=== PATIENT | female | born 1960 | race Caucasian/White ===

== ENCOUNTER → 2022-07-04 15:58 | Outpatient (CLI) | payer BC, SELFPAY ==
--- NOTE | 2022-07-04 | CA_ITS ---
FINAL REPORT CLINICAL HISTORY: Rt leg edema x 3 weeks FINDINGS: There is no evidence of deep venous thrombosis from the level of the groin to the calf. The veins are patent and compressible. IMPRESSION: No evidence of deep venous thrombosis right lower extremity. Reviewed, Interpreted and Dictated by Arlene Hernandez MD Transcribed by Sejal Vasques Authenticated and [facility]
== END ==
PROVIDERS: PCP Nurse Practitioner Family; Visit Provider Nurse Practitioner Family
DX: R09.89 Other specified symptoms and signs involving the circulatory and respiratory systems (principal)
CPT/HCPCS: 93971

== ENCOUNTER 2023-01-15 15:01 | Observation (INO) | payer BC, SELFPAY ==
--- NOTE | 2023-01-15 15:42 | PC.NURSE ---
came to floor from admissions by w/c
[2023-01-15 15:44] VITALS: BMI 29.2
[2023-01-15 15:45] VITALS: BP 151/96; PULSE 72; RESP 18; TEMP 36.7; O2SAT 97
--- NOTE | 2023-01-15 16:05 | HMH.PHAINT1 ---
Pharmacy Intervention Comments: Home medications reviewed and verified with PCP, Pharmacy, and patient -Diego Brumfield, PharmD kishan
[2023-01-15 16:11] VITALS: PULSE 90
--- NOTE | 2023-01-15 16:12 | ECG_ITS ---
APPROVED REPORT Exam: Resting ECG HR:76 bpm ECG Measurements Heart Rate 76 AXES AK 178 P 24 QRSd 102 QRS 34 QT 383 T 10 QTc 414 Conclusion SINUS RHYTHM VOLTAGE CRITERIA FOR LVH [MEETS CRITERIA IN ONE OF: R(aVL), S(V1), R(V5), R(V5/V6)+S(V1)] NONSPECIFIC ST & T-WAVE ABNORMALITY ABNORMAL ECG UNCONFIRMED REPORT Electronically signed by : Duc Faustin MD 01/17/2023 21:24:52
--- NOTE | 2023-01-15 16:12 | XR_ITS ---
PROCEDURE INFORMATION: Exam: XR Chest Exam date and time: 01/15/2023 4:20 PM Age: 62 years old Clinical indication: Sternal or substernal pain; Patient HX: Chest pain, shortness of breath, pain radiating down left arm. TECHNIQUE: Imaging protocol: Radiologic exam of the chest. Views: 2 views. COMPARISON: No relevant prior studies available. FINDINGS: Lungs: No evidence of pneumonia or interstitial edema. Pleural spaces: Unremarkable. No pleural effusion. No pneumothorax. Heart/Mediastinum: Unremarkable. No cardiomegaly. Bones/joints: Unremarkable. IMPRESSION: No evidence of pneumonia or interstitial edema.
[2023-01-15 16:23] LABS: Chloride 102 mmol/L (98-107); Potassium 4.2 mmoL/L (3.5-5.1); Sodium 139 mmol/L (136-145)
--- NOTE | 2023-01-15 16:24 | PC.NURSE ---
pt taken for chest xray via w/c
[2023-01-15 16:25] LABS: Basophils % 0.3 % (0.1-2.0); Eosinophils # 0.2 K/mm3 (0.0-0.4); Hematocrit 44.9 % (42.0-52.0); Lymphocytes # 1.2 K/mm3 (0.7-4.5); Lymphocytes % 20.5 % (10-50); Mean Corpuscular HGB Conc 33.4 g/dL (31.8-35.4); Mean Corpuscular Hemoglobin 30.1 pg (27.0-31.2); Mean Corpuscular Volume 90.1 fl (80-94); Mean Platelet Volume 9.2 fl (7.4-10.4); Monocytes # 0.4 K/mm3 (0.1-1.0); Neutrophils # 4.1 K/mm3 (1.8-7.8); Neutrophils % 70.2 % (37.0-80.0); Platelet Count 152 K/mm3 (142-424); Red Blood Count 4.98 M/mm3 (4.60-6.20); Red Cell Distribution Width 13.1 % (11.5-17.5); White Blood Count 5.8 K/mm3 (4.8-10.8)
[2023-01-15 16:26] LABS: Blood Urea Nitrogen 16 mg/dl (9-20); Creatinine Clearance Estimated 106 mL/min (50-200); Estimated Glomerular Filt Rate 86 ml/min (>60); GFR (African American) 103 ML/MIN (>60)
[2023-01-15 16:27] LABS: Anion Gap 11.2 mEq/L (5-15); Carbon Dioxide 30 mmol/L (22.0-30.0)
[2023-01-15 16:32] LABS: Glucose 115 mg/dl (74-100)
[2023-01-15 16:33] LABS: Calcium 9.2 mg/dl (8.4-10.2)
--- NOTE | 2023-01-15 16:35 | PC.NURSE ---
Pt returned back to unit from radiology
[2023-01-15 16:40] LABS: Troponin I < 0.01 ng/ml (0.00-0.034)
[2023-01-15 16:46] LABS: Coronavirus 19, PCR Not Detected (NotDetected); Influenza A, PCR Not Detected (NotDetected); Influenza B, PCR Not Detected (NotDetected)
--- NOTE | 2023-01-15 17:15 | EXP.HP ---
History of Present Illness *Admission Date: 01/15/23 *Reason for visit:: chest pain *History of present illness: Anderson Anthony is a 62 year old male with a past medical history of GERD, alcohol use disorder and former cigarette smoker who presents with a day of intermittent sharp left sided chest pain. He doesn't regularly see physicians and hasn't ever had a workup for chest pain. The pain is associated with shortness of breath but no diaphoresis. There are no apparent provocative or palliative factors. His only regular medication is prilosec. He denies fevers, chills, abdominal pain, diarrhea and dysuria. [facility] Disclaimer: The information contained in this section may have been updated after the patient was seen, as this information can be updated by other users. Social History Smoking Status: Former smoker alcohol intake: current current occupational status: employed Travel in the last 8 weeks: None household members: spouse housing: house Review of Systems Review of Systems Review of systems:: pertinent systems reviewed and negative unless documented below *Cardiovascular Cardiovascular: Reports chest pain Meds Home Medications and Allergies Home Medications Medication Instructions Recorded Confirmed Type magnesium 250 mg tablet 250 mg PO DAILY Supplement 01/15/23 01/15/23 History omeprazole 20 mg capsule,delayed 20 mg PO DAILY Acid Reflux 01/15/23 01/15/23 History release New Prescriptions to Start Prescriptions: Allergies Allergy/AdvReac Type Severity Reaction Status Date / Time No Known Allergies Allergy Verified 05/24/21 10:15 Exam Data for Last 24 hours Vital signs and Labs for Last 24 Hours: Temp Pulse Resp BP Pulse Ox O2 Del Method 98.1 F 72 18 151/96 H 97 Room Air 01/15/23 15:45 01/15/23 15:45 01/15/23 15:45 01/15/23 15:45 01/15/23 15:45 01/15/23 16:53 Laboratory Results - last 24 hr 01/15/23 15:55: WBC 5.8, RBC 4.98, Hgb 15.0, Hct 44.9, MCV 90.1, MCH 30.1, MCHC 33.4, RDW 13.1, Plt Count 152, MPV 9.2, Neut % (Auto) 70.2, Lymph % (Auto) 20.5, [place] % (Auto) 6.0, Eos % (Auto) 3.0, Baso % (Auto) 0.3, Neut # (Auto) 4.1, Lymph # (Auto) 1.2, [place] # (Auto) 0.4, Eos # (Auto) 0.2, Baso # (Auto) 0.0, Sodium 139, Potassium 4.2, Chloride 102, Carbon Dioxide 30, Anion Gap 11.2, BUN 16, Creatinine 0.90, Estimated Creat Clear 106, Estimated GFR 86, Est GFR ( Amer) 103, Glucose 115 H, Calcium 9.2, Troponin I < 0.01 01/15/23 16:00: SARS-CoV-2 (PCR) Not detected, Influenza A Untype (PCR) Not detected, Influenza Type B (PCR) Not detected I & O for Last 24 hours: Intake & Output 01/12/23 01/13/23 01/14/23 01/15/23 23:59 23:59 23:59 23:59 Weight 97.607 kg Constitutional Constitutional: no acute distress *Routine HEENT Exam Head: Present normocephalic Eye: Present EOMI and PERRL ENT: Present mucous membranes moist *Routine Neck Exam Neck: Present supple; Absent lymphadenopathy *Routine Respiratory Exam Respiratory: Present CTA bilaterally *Routine Cardiovascular Exam Cardiovascular: Present RRR *Routine Abdominal Exam Abdominal: Present soft and normoactive bowel sounds; Absent tenderness *Routine Rectal Exam Rectal:: deferred *Routine Genitalia Exam Genitalia:: deferred *Routine Extremities Exam Extremities: Absent cyanosis, clubbing or edema *Routine Skin Exam Skin: Present warm; Absent rash *Routine Neurological Exam Neurological: Present alert and oriented X3 Assessment and Plan *Assessment and plan (1) Chest pain: Status: Acute Qualifiers: Chest pain type: unspecified Qualified Code(s): R07.9 - Chest pain, unspecified Category: Medical Code(s): R07.9 - Chest pain, unspecified (2) HTN (hypertension): Status: Acute Qualifiers: Hypertension type: unspecified Qualified Code(s): I10 - Essential (primary) hypertension Cat
--- NOTE | 2023-01-15 17:30 | EXP.CARD.CON ---
History of Present Illness History of Present Illness Consult date: 01/15/23 Requesting physician: Surinder Mccallum Consult reason: chest pain Chief complaint: chest pain, palpitations, HTN Additional Medical History:: 1. New onset hypertension 2. Tobacco use starting at age 7 smoking up to 1.5 packs/day and discontinued about 8 years ago (2014) 3. History of palpitations History of present illness: 62-year-old white male admitted from primary care office for new onset hypertension (reportedly 160s over 110 mmHg per patient and daughter) along with substernal chest pain with radiation into the left side of the neck and arm. 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 Symptoms were worse with activity. He quit smoking several years ago and has no history of diabetes or hyperlipidemia. Denies any family history of heart disease. Chest x-ray is negative for acute disease. EKG is sinus with LVH. No acute ST segment changes. [facility] Disclaimer: The information contained in this section may have been updated after the patient was seen, as this information can be updated by other users. Social History Smoking Status: Former smoker alcohol intake: current current occupational status: employed Travel in the last 8 weeks: None household members: spouse housing: house Review of Systems Review of Systems Review of systems:: pertinent systems reviewed and negative unless documented below *Cardiovascular Cardiovascular: Reports chest pain and Reports dyspnea on exertion *Respiratory Respiratory: Denies cough and Reports dyspnea on exertion Exam Data for Last 24 hours Vital signs and Labs for Last 24 Hours: Temp Pulse Resp BP Pulse Ox O2 Del Method 98.1 F 72 18 151/96 H 97 Room Air 01/15/23 15:45 01/15/23 15:45 01/15/23 15:45 01/15/23 15:45 01/15/23 15:45 01/15/23 16:53 Laboratory Results - last 24 hr 01/15/23 15:55: WBC 5.8, RBC 4.98, Hgb 15.0, Hct 44.9, MCV 90.1, MCH 30.1, MCHC 33.4, RDW 13.1, Plt Count 152, MPV 9.2, Neut % (Auto) 70.2, Lymph % (Auto) 20.5, [place] % (Auto) 6.0, Eos % (Auto) 3.0, Baso % (Auto) 0.3, Neut # (Auto) 4.1, Lymph # (Auto) 1.2, [place] # (Auto) 0.4, Eos # (Auto) 0.2, Baso # (Auto) 0.0, Sodium 139, Potassium 4.2, Chloride 102, Carbon Dioxide 30, Anion Gap 11.2, BUN 16, Creatinine 0.90, Estimated Creat Clear 106, Estimated GFR 86, Est GFR ( Amer) 103, Glucose 115 H, Calcium 9.2, Troponin I < 0.01 01/15/23 16:00: SARS-CoV-2 (PCR) Not detected, Influenza A Untype (PCR) Not detected, Influenza Type B (PCR) Not detected I & O for Last 24 hours: Intake & Output 01/13/23 01/14/23 01/15/23 01/16/23 11:59 11:59 11:59 11:59 Weight 215 lb 3 oz Constitutional Constitutional: no acute distress *Routine Respiratory Exam Respiratory: Present CTA bilaterally *Routine Cardiovascular Exam Cardiovascular: Present RRR; Absent murmur, gallop or rubs *Routine Extremities Exam Extremities: Absent cyanosis, clubbing or edema *Routine Neurological Exam Neurological: Present alert, oriented X3 and CN II-XII intact Meds Home Medications and Allergies Home Medications Medication Instructions Recorded Confirmed Type magnesium 250 mg tablet 250 mg PO DAILY Supplement 01/15/23 01/15/23 History omeprazole 20 mg capsule,delayed 20 mg PO DAILY Acid Reflux 01/15/23 01/15/23 History release New Prescriptions to Start Prescriptions: Allergies Allergy/AdvReac Type Severity Reaction Status Date / Time No Known Allergies Allergy Verified 05/24/21 10:15 Assessment and Plan *Assessment and plan (1) Chest pain: Status: Acute Qualifiers: Chest pain type: unspecified Qualified Code(s): R07.9 - Chest pain, unspecified Category: Medical Code(s): R07.9 - Chest pain, unspecified (2) HTN (hypertension): Status: Acute Qualifiers: Hy
--- NOTE | 2023-01-15 19:03 | PC.NURSE ---
Bedside shift report form ZEUS Patel
[2023-01-15 20:00] VITALS: BP 132/84; PULSE 75; PULSE 90; RESP 18; TEMP 36.6; O2SAT 98
[2023-01-15 22:40] LABS: Troponin I < 0.01 ng/ml (0.00-0.034)
[2023-01-16] VITALS (17 sets, daily range): BP systolic 112–153; BP diastolic 51–87; PULSE 54–70; RESP 12–19; TEMP 36.6–37; O2SAT 93–99; BMI 29.5
--- NOTE | 2023-01-16 06:45 | IR_ITS ---
APPROVED REPORT Patient Location: Inpatient [facility] Layer: MEKA Vigil RT (R) PROCEDURES Left heart catheterization Left ventriculogram Selective coronary angiogram INDICATION Unstable angina Informed consent was obtained prior to the procedure. COMPLICATIONS None Estimated Blood Loss: Less than 10 mls TECHNIQUE One percent lidocaine used to anesthetize the right anterior aspect of the wrist. The right radial artery was accessed via the Seldinger technique. A 6 Brazilian sheath was placed in the right radial artery. 150 mg magnesium sulfate, 800 mcg of nitroglycerin, 1mg Lidocaine and 5000 U Heparin were given through the arterial sheath. The papa catheter was also used to perform left heart catheterization, left ventriculogram and selective coronary angiogram. At the end of the procedure the sheath was removed good hemostasis was achieved using Traclet band, patient was transferred to the postop holding area in stable condition. ANGIOGRAPHIC RESULTS The left main artery Normal The left anterior descending artery Has proximal 20 to 30% stenoses with mid vessel 10% luminal regularities The circumflex artery Nondominant mild 10% luminal regularities The right coronary artery Dominant with proximal and mid vessel 10 to 20% stenoses The COLLAZO ventriculogram reveals Normal 60% The left ventricular end-diastolic pressure 20 mmHg IMPRESSION Mild nonflow limiting coronary artery disease Normal ejection fraction Elevated LVEDP consistent with hypertensive heart disease PLAN 1. Risk factor modification 2. Medical management for hypertensive heart disease and elevated LVEDP Electronically signed by : Brandon Almaguer MD 01/16/2023 09:26:29
--- NOTE | 2023-01-16 06:45 | PC.NURSE ---
Patient rested well throughout shift without needs or concerns expressed. He is independent to all ADL's. He remained NPO after midnight for heart cath this AM. greenhouse technician at bedside now completing study. No needs at this time. VSS. NAD
[2023-01-16 07:24] LABS: Magnesium 2.2 mg/dl (1.6-2.3)
--- NOTE | 2023-01-16 07:31 | PC.NURSE ---
Consent signed. Patient ready for cath.
[2023-01-16 07:38] LABS: Troponin I < 0.01 ng/ml (0.00-0.034)
[2023-01-16 08:22] LABS: Chol/HDL Ratio 3.8 (1-3.5); Cholesterol 180 mg/dl (140-200); HDL Cholesterol 47 mg/dl (40-60); Triglycerides 164 mg/dl (30-150); VLDL Cholesterol 33 mg/dL (0-40)
[2023-01-16 08:30] LABS: Hemoglobin A1C 5.6 % (4.0-6.0)
--- NOTE | 2023-01-16 09:05 | EXP.CARD.PN ---
Subjective Subjective Date: 01/16/23 Time: 09:05 Principal diagnosis: chest pain Interval history: 62-year-old white male in bed in no acute distress. No complaints overnight. Agrees to proceed with heart cath today. Blood pressure overnight was much improved on medication. Exam Data for Last 24 hours Vital signs and Labs for Last 24 Hours: Temp Pulse Resp BP Pulse Ox O2 Del Method 98.1 F 70 18 153/87 H 98 Room Air 01/16/23 07:29 01/16/23 07:29 01/16/23 07:29 01/16/23 07:29 01/16/23 07:32 01/16/23 07:32 Laboratory Results - last 24 hr 01/15/23 15:55: WBC 5.8, RBC 4.98, Hgb 15.0, Hct 44.9, MCV 90.1, MCH 30.1, MCHC 33.4, RDW 13.1, Plt Count 152, MPV 9.2, Neut % (Auto) 70.2, Lymph % (Auto) 20.5, [place] % (Auto) 6.0, Eos % (Auto) 3.0, Baso % (Auto) 0.3, Neut # (Auto) 4.1, Lymph # (Auto) 1.2, [place] # (Auto) 0.4, Eos # (Auto) 0.2, Baso # (Auto) 0.0, Sodium 139, Potassium 4.2, Chloride 102, Carbon Dioxide 30, Anion Gap 11.2, BUN 16, Creatinine 0.90, Estimated Creat Clear 106, Estimated GFR 86, Est GFR ( Amer) 103, Glucose 115 H, Calcium 9.2, Troponin I < 0.01 01/15/23 16:00: SARS-CoV-2 (PCR) Not detected, Influenza A Untype (PCR) Not detected, Influenza Type B (PCR) Not detected 01/15/23 22:00: Troponin I < 0.01 01/16/23 06:39: Hemoglobin A1c 5.6, Magnesium 2.2, Troponin I < 0.01, Triglycerides 164 H, Cholesterol 180, LDL Cholesterol Direct 99.00 L, VLDL Cholesterol 33, HDL Cholesterol 47, Cholesterol/HDL Ratio 3.8 H I & O for Last 24 hours: Intake & Output 01/13/23 01/14/23 01/15/23 01/16/23 11:59 11:59 11:59 11:59 Intake Total 360 / 360 Output Total 1650 / 1650 Balance -1290 / -1290 Weight 217 lb 11.2 oz Constitutional Constitutional: no acute distress *Routine Respiratory Exam Respiratory: Present CTA bilaterally *Routine Cardiovascular Exam Cardiovascular: Present RRR Progress Note: A&P Assessment and plan (1) Chest pain: Status: Acute (2) HTN (hypertension): Status: Acute (3) Ex-smoker for more than 1 year: Status: Acute (4) Abnormal EKG: Status: Acute Assessment and Plan Assessment and Plan for All Diagnoses:: 1. Chest pain with radiation to neck and shoulder in a patient with long-term tobacco use which was discontinued in 2014 Check echo Trops normal, LDL 99 Start beta-ina, statin, norvasc and aspirin Recommend left heart catheterization due to cardiac risk factors (male, over the age of 40, ex-smoker, recurrent chest pain and abnormal EKG) 2. Hypertension, new onset per patient Check echo and start beta-ina Consider renal angiogram at the time of left heart catheterization due to new onset hypertension 3. Ex-smoker ANGIOGRAPHIC RESULTS The left main artery Normal The left anterior descending artery Has proximal 20 to 30% stenoses with mid vessel 10% luminal regularities The circumflex artery Nondominant mild 10% luminal regularities The right coronary artery Dominant with proximal and mid vessel 10 to 20% stenoses The COLLAZO ventriculogram reveals Normal 60% The left ventricular end-diastolic pressure 20 mmHg IMPRESSION Mild nonflow limiting coronary artery disease Normal ejection fraction Elevated LVEDP consistent with hypertensive heart disease PLAN 1. Risk factor modification 2. Medical management for hypertensive heart disease and elevated LVEDP Pt could be discharged home later today. Home med recommendations: Aspirin 81 mg daily Atorvastatin 40 mg daily Amlodipine 5 mg daily Metoprolol succinate 25 mg nightly Pantoprazole 40 mg daily Follow-up in our office in 1 week.
--- NOTE | 2023-01-16 13:51 | EXP.DC.SUM ---
General Admission date:: 01/15/23 Discharge date: 01/16/23 HPI HPI HPI: Anderson Anthony is a 62 year old male with a past medical history of GERD, alcohol use disorder and former cigarette smoker who presents with a day of intermittent sharp left sided chest pain. He doesn't regularly see physicians and hasn't ever had a workup for chest pain. The pain is associated with shortness of breath but no diaphoresis. There are no apparent provocative or palliative factors. His only regular medication is prilosec. He denies fevers, chills, abdominal pain, diarrhea and dysuria. Hospital Course Hospital Course Hospital Course: Troponin levels were trended and were within normal limits. Cardiology performed a left heart catheterization with the following results: ANGIOGRAPHIC RESULTS The left main artery Normal The left anterior descending artery Has proximal 20 to 30% stenoses with mid vessel 10% luminal regularities The circumflex artery Nondominant mild 10% luminal regularities The right coronary artery Dominant with proximal and mid vessel 10 to 20% stenoses The COLLAZO ventriculogram reveals Normal 60% The left ventricular end-diastolic pressure 20 mmHg IMPRESSION Mild nonflow limiting coronary artery disease Normal ejection fraction Elevated LVEDP consistent with hypertensive heart disease -- The patient was discharged with new diagnosis of CAD and HTN. He was discharged with new medications amlodipine, metoprolol, aspirin, and Lipitor. He will need to f/u with Cardiology and PCP in 1 week. Exam Data for Last 24 hours Vital signs and Labs for Last 24 Hours: Temp Pulse Resp BP Pulse Ox O2 Del Method O2 Flow Rate 98.3 F 68 15 130/72 95 Room Air 95 01/16/23 11:15 01/16/23 12:15 01/16/23 12:15 01/16/23 12:15 01/16/23 12:00 01/16/23 13:00 01/16/23 13:00 Laboratory Results - last 24 hr 01/15/23 15:55: WBC 5.8, RBC 4.98, Hgb 15.0, Hct 44.9, MCV 90.1, MCH 30.1, MCHC 33.4, RDW 13.1, Plt Count 152, MPV 9.2, Neut % (Auto) 70.2, Lymph % (Auto) 20.5, [place] % (Auto) 6.0, Eos % (Auto) 3.0, Baso % (Auto) 0.3, Neut # (Auto) 4.1, Lymph # (Auto) 1.2, [place] # (Auto) 0.4, Eos # (Auto) 0.2, Baso # (Auto) 0.0, Sodium 139, Potassium 4.2, Chloride 102, Carbon Dioxide 30, Anion Gap 11.2, BUN 16, Creatinine 0.90, Estimated Creat Clear 106, Estimated GFR 86, Est GFR ( Amer) 103, Glucose 115 H, Calcium 9.2, Troponin I < 0.01 01/15/23 16:00: SARS-CoV-2 (PCR) Not detected, Influenza A Untype (PCR) Not detected, Influenza Type B (PCR) Not detected 01/15/23 22:00: Troponin I < 0.01 01/16/23 06:39: Hemoglobin A1c 5.6, Magnesium 2.2, Troponin I < 0.01, Triglycerides 164 H, Cholesterol 180, LDL Cholesterol Direct 99.00 L, VLDL Cholesterol 33, HDL Cholesterol 47, Cholesterol/HDL Ratio 3.8 H I & O for Last 24 hours: Intake & Output 01/13/23 01/14/23 01/15/23 01/16/23 23:59 23:59 23:59 23:59 Intake Total 360 / 360 360 / 360 Output Total 1650 / 1650 Balance 360 / -40 -1290 / -1290 Weight 97.607 kg 98.747 kg Constitutional Constitutional: no acute distress *Routine HEENT Exam Head: Present normocephalic Eye: Present EOMI and PERRL ENT: Present mucous membranes moist *Routine Neck Exam Neck: Present supple; Absent lymphadenopathy *Routine Respiratory Exam Respiratory: Present CTA bilaterally *Routine Cardiovascular Exam Cardiovascular: Present RRR *Routine Abdominal Exam Abdominal: Present soft and normoactive bowel sounds; Absent tenderness *Routine Extremities Exam Extremities: Absent cyanosis, clubbing or edema *Routine Skin Exam Skin: Present warm; Absent rash *Routine Neurological Exam Neurological: Present alert and oriented X3 Results Data Completed and Pending Labs on day of discharge: Labs from last 24 hours 01/16/23 01/15/23 01/15/23 06:39 22:00 16:00 WBC RBC Hgb Hct MCV MCH MCHC RDW Plt Count MPV Neut % (Auto) Lymph % (Auto) [place] % (Auto) Eos % (
--- NOTE | 2023-01-16 13:59 | HMH.PHAINT1 ---
Pharmacy Intervention Comments: Discharge medications reviewed with patient, patient's , and other family members. -Aspirin (told to watch for bleeding and bruising) -Amlodipine (told to watch for peripheral edema) -Atorvastatin ( told to watch for muscle pain) -Metoprolol (told to watch for fatigue and dizziness while standing after sitting) Diego Brumfield, PharmD student
--- NOTE | 2023-01-17 14:00 | CARE MANAGER ---
Called and spoke with patient regarding recent discharge. Patient stated that he has started all new medication and he was aware of scheduled f/u appts. No concerns or complaints at time of call.
== END 2023-01-16 14:59 | disposition home or self-care (01) ==
PROVIDERS: Admitting Provider Internal Medicine; PCP Nurse Practitioner Family; Visit Provider Internal Medicine
DX: I25.110 Atherosclerotic heart disease of native coronary artery with unstable angina pectoris (principal); Z87.891 Personal history of nicotine dependence; K21.9 Gastro-esophageal reflux disease without esophagitis; F10.10 Alcohol abuse, uncomplicated; I10 Essential (primary) hypertension; Z79.899 Other long term (current) drug therapy; R94.31 Abnormal electrocardiogram [ECG] [EKG]
CPT/HCPCS: 36415; 71046; 80048; 80061; 83036; 83735; 84484; 85025; 87636; 93005; 93306; 93458; 99152; C1725; C1769; G0378; J1644; Q9967

== ENCOUNTER 2023-02-22 14:55 | Emergency (ER) | payer BC, SELFPAY ==
[2023-02-22] VITALS (7 sets, daily range): BP systolic 143–167; BP diastolic 52–95; PULSE 73–81; RESP 16–18; TEMP 36.6–36.8; O2SAT 95–98; BMI 29.4
--- NOTE | 2023-02-22 16:39 | CT_ITS ---
PROCEDURE INFORMATION: Exam: CT Pelvis Without Contrast; Skeletal Exam date and time: 02/22/2023 5:19 PM Age: 62 years old Clinical indication: Injury or trauma; Fall; Blunt trauma (contusions or hematomas); Bilateral; Pelvic region; Additional info: Fall, L posterior pelvic pain TECHNIQUE: Imaging protocol: Computed tomography of the pelvis without contrast. Exam focused on the skeleton. Radiation optimization: All CT scans at this facility use at least one of these dose optimization techniques: automated exposure control; mA and/or kV adjustment per patient size (includes targeted exams where dose is matched to clinical indication); or iterative reconstruction. REPORTING DATA: Count of CT and Cardiac NM exams in prior 12 months: This patient has received 0 known CTs and 0 known cardiac nuclear medicine studies in the 12 months prior to the current study. COMPARISON: CA VENOUS DOPPLER LE RT 07/04/2022 4:07 PM FINDINGS: Vasculature: Scattered atherosclerotic disease of the arterial vasculature. Bones/joints: There is diffuse osseous demineralization. Soft tissues: There is moderate soft tissue edema over the left buttock without underlying osseous injury. IMPRESSION: There is moderate soft tissue edema over the left buttock without underlying osseous injury.
--- NOTE | 2023-02-22 16:39 | XR_ITS ---
PROCEDURE INFORMATION: Exam: XR Left Hand Exam date and time: 02/22/2023 4:54 PM Age: 62 years old Clinical indication: Injury or trauma; Fall; Blunt trauma (contusions or hematomas); Hand; Left; Additional info: Fall, thumb pain TECHNIQUE: Imaging protocol: Radiologic exam of the left hand. Views: 3 or more views. COMPARISON: No relevant prior studies available. FINDINGS: Bones/joints: There is negative ulnar variance. There is minimal degenerative disease of the carpus and 1st basal joint. No acute fracture or dislocation is identified. Soft tissues: Normal. IMPRESSION: Degenerative disease without acute injury identified.
--- NOTE | 2023-02-22 16:39 | CT_ITS ---
PROCEDURE INFORMATION: Exam: CTA Abdomen and Pelvis With Contrast Exam date and time: 02/22/2023 5:23 PM Age: 62 years old Clinical indication: Injury or trauma; Fall; Blunt trauma; Lower abdominal or back area; Left; Additional info: Fall, L gluteal significant swelling TECHNIQUE: Imaging protocol: Computed tomographic angiography of the abdomen and pelvis with contrast. Exam focused on the arteries. 3D rendering (Not supervised by radiologist): MIP and/or 3D reconstructed images were created by the technologist. Radiation optimization: All CT scans at this facility use at least one of these dose optimization techniques: automated exposure control; mA and/or kV adjustment per patient size (includes targeted exams where dose is matched to clinical indication); or iterative reconstruction. Contrast material: ISOVUE; Contrast volume: 100 ml; Contrast route: INTRAVENOUS (IV); REPORTING DATA: Count of CT and Cardiac NM exams in prior 12 months: This patient has received 0 known CTs and 0 known cardiac nuclear medicine studies in the 12 months prior to the current study. COMPARISON: CT BONY PELVIS 02/22/2023 5:19 PM FINDINGS: Aorta: There is atherosclerotic disease of the visualized aorta and its major branch vessels. Celiac trunk and mesenteric arteries: No occlusion or significant stenosis. Renal arteries: No occlusion or significant stenosis. Right iliac arteries: No occlusion or significant stenosis. Left iliac arteries: No occlusion or significant stenosis. Liver: No mass. Gallbladder and bile ducts: Unremarkable. No calcified stones. No ductal dilation. Pancreas: There is fatty replacement of the pancreas. Spleen: Unremarkable. No splenomegaly. Adrenal glands: Unremarkable. No mass. Kidneys and ureters: Unremarkable. No solid mass. No hydronephrosis. Stomach and bowel: Unremarkable. No obstruction. No mucosal thickening. Appendix: No evidence of appendicitis. Intraperitoneal space: Unremarkable. No free air. No significant fluid collection. Lymph nodes: Unremarkable. No enlarged lymph nodes. Urinary bladder: Unremarkable. No mass. Reproductive: Unremarkable as visualized. Bones/joints: There is diffuse degenerative disease of the visualized osseous structures. Soft tissues: Unremarkable. Other findings: Please see the dedicated interpretation of the thorax for findings in that region. IMPRESSION: No acute traumatic injury is identified.
--- NOTE | 2023-02-22 16:39 | CT_ITS ---
PROCEDURE INFORMATION: Exam: CTA Chest With Contrast Exam date and time: 02/22/2023 5:23 PM Age: 62 years old Clinical indication: Injury or trauma; Fall; Blunt trauma (contusions or hematomas); Additional info: Trauma, posterior R thoracic cage pain TECHNIQUE: Imaging protocol: Computed tomographic angiography of the chest with contrast. Exam focused on the arteries. 3D rendering (Not supervised by radiologist): MIP and/or 3D reconstructed images were created by the technologist. Radiation optimization: All CT scans at this facility use at least one of these dose optimization techniques: automated exposure control; mA and/or kV adjustment per patient size (includes targeted exams where dose is matched to clinical indication); or iterative reconstruction. Contrast material: ISOVUE; Contrast volume: 100 ml; Contrast route: INTRAVENOUS (IV); REPORTING DATA: Count of CT and Cardiac NM exams in prior 12 months: This patient has received 0 known CTs and 0 known cardiac nuclear medicine studies in the 12 months prior to the current study. COMPARISON: CR XR CHEST 2V 01/15/2023 4:20 PM FINDINGS: Pulmonary arteries: Normal. No pulmonary emboli. Aorta: Unremarkable. No aortic aneurysm. No aortic dissection. Lungs: There is a calcified granuloma in the left lower lobe. Pleural spaces: Unremarkable. No pneumothorax. No pleural effusion. Heart: Unremarkable. No cardiomegaly. No pericardial effusion. Lymph nodes: There are calcified mediastinal lymph nodes likely reflecting prior granulomatous disease. Intraperitoneal space: Please see the dedicated interpretation of abdomen and pelvis for findings in that region. Bones/joints: Unremarkable. No acute fracture. Soft tissues: Unremarkable. IMPRESSION: No acute traumatic injury is identified.
--- NOTE | 2023-02-22 16:41 | HMH.EDGENADL ---
Discharge Plan Disposition Patient Disposition: Home, Self-Care Condition: Fair Chief Complaint: Fall Prescriptions Prescriptions: No Action amlodipine 5 mg tablet 5 mg PO DAILY Qty: 90 3RF atorvastatin 40 mg tablet 40 mg PO HS Qty: 90 3RF metoprolol succinate 25 mg capsule,sprinkle,ER 24hr 25 mg PO DAILY Qty: 90 3RF Rx Instructions: Take one tablet every night. omeprazole 20 mg capsule,delayed release(DR/EC) 20 mg PO DAILY Qty: 90 3RF magnesium 250 mg Tablet 250 mg PO DAILY aspirin 81 mg Tablet,Chewable 81 mg PO DAILY Qty: 30 0RF Referrals Follow up/Referrals: Jaxon Zayas APRN [Primary Care Provider] - See instructions Activity Restrictions/Add. Instructions Additional Instructions/Restrictions: At this time is felt you are safe to be discharged home. If new or worsening symptoms please not hesitate to return the emergency department. For pain please take Tylenol and ibuprofen every 6 hours as needed. Clinical Impressions Clinical Impression: Blunt trauma, Fall Discharge ED Provider: Jimmie Whitmore General Adult HPI General Chief complaint: Fall Stated complaint: AO8/24@home, pain in tailbone/back Time Seen by Provider: 02/22/23 16:22 Mode of Arrival: Ambulatory Source of Information: Patient Limitations: No Limitations Description of Symptoms (Recalled from ER Triage Doc. by RN): Pt reports falling down 6 steps and landing on his buttocks and injuring his right ribs/flank area at aprox 11am today. Pt has brusing to left buttock and it is somewhat firm to the touch. History of Present Illness HPI narrative: Patient is a 62-year-old male with no pertinent past medical history not on anticoagulants who presents emergency department for evaluation of traumatic injury sustained in a fall. Patient states that he fell while going down 6 stairs when it was wet outside, denies hitting his head, he landed on his left hip and mid back. Patient is complaining of left hip pain, left thumb pain, right inferior posterior rib pain. Denies headache, midline neck pain, other acute complaints at this time. Related Data Home Medications Medication Instructions Recorded Confirmed magnesium 250 mg tablet 250 mg PO DAILY Supplement 01/15/23 01/23/23 Previous Rx's Medication Instructions Recorded aspirin 81 mg chewable tablet 81 mg PO DAILY #30 tabs 01/16/23 amlodipine 5 mg tablet 5 mg PO DAILY #90 tabs 01/23/23 atorvastatin 40 mg tablet 40 mg PO HS #90 tabs 01/23/23 metoprolol succinate 25 mg capsule 25 mg PO DAILY #90 ea 01/23/23 sprinkle, ext. release 24 hr omeprazole 20 mg capsule,delayed 20 mg PO DAILY Acid Reflux #90 caps 01/23/23 release Allergies Allergy/AdvReac Type Severity Reaction Status Date / Time No Known Allergies Allergy Verified 01/23/23 12:08 [facility] Disclaimer: The information contained in this section may have been updated after the patient was seen, as this information can be updated by other users. Medical History (Updated 02/22/23 @ 18:10 by Jimmie Whitmore MD) Coronary artery disease HLD (hyperlipidemia) Social History Smoking Status: Never smoker alcohol intake: current current occupational status: employed Travel in the last 8 weeks: None household members: spouse housing: house ROS Obtained: Yes Systems reviewed as appropriate & no additional complaints except as documented Physical Exam General General appearance: alert and in no apparent distress Head Head exam: atraumatic and normocephalic Eye Eye exam: Present PERRL and EOMI ENT ENT exam: Present mucous membranes moist Neck Neck exam: Present normal inspection and full ROM; Absent tenderness Chest Chest inspection: Present normal inspection, symmetric chest wall rise and other (Posterior right thoracic cage tenderness) Respiratory Respiratory exam: Present normal lung sounds bilaterally; Abs
[2023-02-22 16:55] LABS: Basophils % 0.4 % (0.1-2.0); Eosinophils # 0.2 K/mm3 (0.0-0.4); Eosinophils % 1.8 % (0.1-12.0); Hematocrit 44.7 % (42.0-52.0); Hemoglobin 14.9 g/dL (14.1-18.0); Lymphocytes # 1.5 K/mm3 (0.7-4.5); Lymphocytes % 14.9 % (10-50); Mean Corpuscular HGB Conc 33.4 g/dL (31.8-35.4); Mean Corpuscular Hemoglobin 30.7 pg (27.0-31.2); Mean Corpuscular Volume 91.8 fl (80-94); Mean Platelet Volume 9.3 fl (7.4-10.4); Monocytes # 0.7 K/mm3 (0.1-1.0); Neutrophils # 7.4 K/mm3 (1.8-7.8); Neutrophils % 75.9 % (37.0-80.0); Platelet Count 194 K/mm3 (142-424); Red Blood Count 4.87 M/mm3 (4.60-6.20); Red Cell Distribution Width 12.9 % (11.5-17.5); White Blood Count 9.8 K/mm3 (4.8-10.8)
[2023-02-22 16:57] LABS: Chloride 105 mmol/L (98-107); Sodium 140 mmol/L (136-145)
[2023-02-22 17:00] LABS: Alanine Aminotransferase 54 U/L (12-78); Albumin Level 4.1 g/dl (3.5-5.0); Albumin/Globulin Ratio 1.4 (1.1-1.8); Alkaline Phosphatase 80 U/L (38-126); Aspartate Amino Transferase 46 U/L (17-59); Bilirubin,Total 0.5 mg/dl (0.2-1.3); Blood Urea Nitrogen 14 mg/dl (9-20); Creatinine Clearance Estimated 107 mL/min (50-200); Estimated Glomerular Filt Rate 98 ml/min (>60); GFR (African American) 119 ML/MIN (>60); Globulin 2.9 g/dL (1.3-3.2)
[2023-02-22 17:01] LABS: Calcium 9.2 mg/dl (8.4-10.2); Carbon Dioxide 29 mmol/L (22.0-30.0); Glucose 123 mg/dl (74-100)
== END 2023-02-22 18:20 | disposition home or self-care (01) ==
PROVIDERS: Emergency Provider Emergency Medicine; PCP Nurse Practitioner Family
DX: M25.552 Pain in left hip (principal); R07.81 Pleurodynia; M79.645 Pain in left finger(s); I11.9 Hypertensive heart disease without heart failure; I25.10 Atherosclerotic heart disease of native coronary artery without angina pectoris; E78.5 Hyperlipidemia, unspecified; W10.8XXA Fall (on) (from) other stairs and steps, initial encounter
CPT/HCPCS: 36415; 71275; 72192; 73130; 74174; 80053; 85025; 86850; 96374; 99285; Q9967

== ENCOUNTER 2024-10-29 09:29 | Outpatient (CLI) | payer OTHER, SELFPAY ==
[2024-10-29 09:59] LABS: Basophils % 0.5 % (0.1-2.0); Eosinophils # 0.2 Kmm3 (0.0-0.4); Eosinophils % 3.6 % (0.1-12.0); Hemoglobin 15.3 g/dL (14.1-18.0); Lymphocytes # 1.5 K/mm3 (0.7-4.5); Mean Corpuscular HGB Conc 33.3 g/dL (31.8-35.4); Mean Corpuscular Hemoglobin 29.9 pg (27.0-31.2); Mean Corpuscular Volume 89.8 fl (80-94); Monocytes # 0.4 K/mm3 (0.1-1.0); Monocytes % 6.7 % (1.7-9.3); Neutrophils # 3.6 K/mm3 (1.8-7.8); Neutrophils % 62.9 % (37.0-80.0); Nucleated Red Blood Cells # 0 10^3/uL; Nucleated Red Blood Cells % 0 %; Platelet Count 169 K/mm3 (142-424); Red Blood Count 5.12 M/mm3 (4.60-6.20); Red Cell Distribution Width 12.1 % (11.5-17.5); Red Cell Distribution Width-SD 39.7 fL; White Blood Count 5.8 K/mm3 (4.8-10.8)
[2024-10-29 10:29] LABS: Chloride 105 mmol/L (98-107); Sodium 141 mmol/L (136-145)
[2024-10-29 10:31] LABS: Bilirubin,Unconjugated 0.4 mg/dL (0.0-1.1); Blood Urea Nitrogen 12 mg/dl (9-20); Carbon Dioxide 29 mmol/L (22.0-30.0); Estimated Glomerular Filt Rate 85 ml/min (>60); GFR (African American) 103 ML/MIN (>60)
[2024-10-29 10:32] LABS: Alanine Aminotransferase 84 U/L (12-78); Alkaline Phosphatase 84 U/L (38-126); Aspartate Amino Transferase 63 U/L (17-59); Bilirubin,Direct 0.1 mg/dl (0.0-0.4); Bilirubin,Indirect 0.4 mg/dL (0.0-0.9); Bilirubin,Total 0.5 mg/dl (0.2-1.3); Cholesterol 119 mg/dl (140-200); Glucose 131 mg/dl (74-100); HDL Cholesterol 60 mg/dl (40-60); Total Protein,Serum 7.4 g/dl (6.3-8.2); Triglycerides 169 mg/dl (30-150); VLDL Cholesterol 34 mg/dL (0-40)
[2024-10-29 10:49] LABS: Free T4 (Free Thyroxine) 0.94 ng/dl (0.78-2.19)
[2024-10-29 11:03] LABS: Thyroid Stimulating Hormone 1.81 uIU/mL (0.465-4.68)
== END 2024-10-29 23:59 | disposition home or self-care (01) ==
LOC: LAB 16:08
PROVIDERS: PCP Nurse Practitioner Family; Visit Provider Nurse Practitioner Family
DX: E78.5 Hyperlipidemia, unspecified (principal); I11.9 Hypertensive heart disease without heart failure; I25.10 Atherosclerotic heart disease of native coronary artery without angina pectoris; R94.31 Abnormal electrocardiogram [ECG] [EKG]
CPT/HCPCS: 36415; 80048; 80061; 80076; 83735; 84439; 84443; 85025

== ENCOUNTER 2024-11-05 08:08 | Outpatient (CLI) | payer OTHER, SELFPAY ==
--- NOTE | 2024-11-05 08:15 | CA_ITS ---
APPROVED REPORT EXAM: Comprehensive 2D, Doppler, and color-flow Echocardiogram Manager Environmental Health: Ysabel Shultz CRT Ht: 6 ft 0 in Wt: 234lbs BSA: 2.28 BP: 132/70 mmHg Indications: Shortness of Breath, CAD, Hyperlipidemia, Hypertension/HDD 2D Dimensions LA Volume 33.50 mL LA Volume Index 14.40 mL/m2 (M/F) 16-34 M-Mode Dimensions RVDd 3.01 cm (0.9-2.6) LA Diam 3.35 cm (1.9-4.0) LVDd 4.62 cm (3.5-5.7) LVDs 3.62 cm (3.5-5.7) IVSd 1.53 cm (0.6-1.1) PWd 0.96 cm (0.6-1.1) EF (Teich) 43.80% FS 21.60% EDV (Teich) 98.30 mL TAPSE 1.88 (<1.7) ESV (Teich) 55.20 mL LV Diastology E Decel Time 210 (160-240 msec) E/A Ratio 0.78 MED A' 12.40 cm/s LAT A' 12.90 cm/s Aortic Valve AO Peak GR. 6.40 mmHg Mitral Valve MV E Max Home. 60.0 (40-130 cm/s) MV A Velocity 77.0 (40-130 cm/s) E/A Ratio 0.78 MV PHT 62.0 ms Pulmonary Valve PV Peak Velocity 90.0 (50-150 cm/s) Tricuspid Valve TR P. Velocity 172.00 cm/s RAP Estimate 10.00 mmHg RVSP 21.80 mmHg Left Ventricle The left ventricle is normal size. The left ventricular systolic function is normal. The left ventricular ejection fraction is within the normal range. There is increased overall thickness. There is normal LV segmental wall motion. Transmitral Doppler flow pattern suggests impaired LV relaxation. LVEF is 55%. Right Ventricle The right ventricle is normal size. The right ventricular systolic function is normal. Atria The left atrium size is normal. The right atrium size is normal. There is no Doppler evidence of interatrial shunt. Aortic Valve The aortic valve is mildly thickened. There is no aortic valvular stenosis. No aortic regurgitation is present. Mitral Valve The mitral valve is normal in structure. No evidence of mitral valve stenosis. Trace mitral regurgitation. Tricuspid Valve Tricuspid valve is grossly normal in structure and function. Trace tricuspid regurgitation. There is insufficient TR jet to estimate RVSP. Pulmonic Valve The pulmonary valve is normal in structure. Trace pulmonic regurgitation. Great Vessels The aortic root is normal in size. IVC is normal in size and collapses >50% with inspiration. Pericardium There is no pericardial effusion. Other Information Study Quality: Fair Conclusion Normal biventricular systolic function. No significant valvular stenosis or regurgitation. Electronically signed by : Soryaa Anderson MD 11/15/2024 00:00:55
== END 2024-11-05 23:59 | disposition home or self-care (01) ==
LOC: RT 08:09
PROVIDERS: PCP Nurse Practitioner Family; Visit Provider Nurse Practitioner Family
DX: I25.10 Atherosclerotic heart disease of native coronary artery without angina pectoris (principal); E78.5 Hyperlipidemia, unspecified; I10 Essential (primary) hypertension; R94.31 Abnormal electrocardiogram [ECG] [EKG]
CPT/HCPCS: 93306

== ENCOUNTER 2025-04-30 08:48 | Outpatient (CLI) | payer OTHER, SELFPAY ==
--- OUTSIDE RECORDS SUMMARY | 2025-04-30 08:53 | XMS_ITS | Clinical Summary ---
Author Organization Healthcare Address [address] [place] [address] Care Team Providers Care Livestock Agent Name Role Phone Unavailable Primary Care Provider Unavailabl e Social History Tobacco Use Types Packs/Day Years Used Date Smoking Tobacco: Never Assessed Sex and Gender Information Value Date Recorded Sex Assigned at Not on file Legal Sex Male 8:36 AM EDT Gender Identity Not on file Sexual Orientation Not on file Last Filed Vital Signs Vital Sign Reading Time Taken Comments Blood Pressure 151/96 01/16/2023 9:52 AM EDT Pulse 72 01/16/2023 9:52 AM EDT Temperature - - Respiratory Rate - - Oxygen Saturation - - Inhaled Oxygen Concentration - - Weight 97.5 kg (215 lb) 01/16/2023 9:52 AM EDT Height 182.9 cm (6') 01/16/2023 9:52 AM EDT Body Mass Index 29.16 01/16/2023 9:52 AM EDT Plan of Treatment Health Maintenance Due Date Last Done Comments [facility]-Depression Screening 1960 [facility]-/Child/Adol SDOH Screenings 1960 [facility]- SDOH Screenings 1978 [facility]-Adult SDOH Screenings 1978 [facility]-DTaP,Tdap,and Td Vaccine s (1 - Tdap) 1979 CT Colonography 2005 Colonoscopy 2005 FIT-DNA 2005 FIT 2005 FOBT 2005 Sigmoidoscopy 2005 [facility]-Colorectal Cancer Screening 2005 [facility]-Pneumococcal Vaccine: 50 + Years (1 of 1 - PCV) 2010 [facility]-Zoster Vaccines (1 of 2) 2010 [id number] Vaccine (3 - season) 2025 03/25/2021, 03/03/2021 [facility]-Influenza Vaccine (#1) 2025 04/06/2012 [facility]-RSV Vaccine: 60+ Years o r (1 - 1-dose 75+ series) 2035 HPV Vaccines Aged Out No longer eligi ble based on patient's age to complete this topic [facility]-HIB Vaccines Aged Out No longer e ligible based on patient's age to complete this topic [facility]-Hepatitis A Vaccines Aged Out No longer eligible based on patient's age to complete this topic [facility]-IPV Vaccines Aged Out No longer e ligible based on patient's age to complete this topic [facility]-Rotavirus Vaccines Aged Out No lo nger eligible based on patient's age to complete this topic Insurance [facility]
[2025-04-30 09:32] LABS: Hematocrit 44.6 % (42.0-52.0); Hemoglobin 15.0 g/dL (14.1-18.0); Immature Granulocytes % 0.2 %; Mean Corpuscular HGB Conc 33.6 g/dL (31.8-35.4); Mean Corpuscular Hemoglobin 30.4 pg (27.0-31.2); Mean Corpuscular Volume 90.5 fl (80-94); Nucleated Red Blood Cells % 0 %; Platelet Count 163 K/mm3 (142-424); Red Blood Count 4.93 M/mm3 (4.60-6.20); Red Cell Distribution Width-SD 39.1 fL; White Blood Count 6.5 K/mm3 (4.8-10.8)
[2025-04-30 10:27] LABS: Alanine Aminotransferase 94 U/L (12-78); Albumin Level 3.7 g/dl (3.5-5.0); Alkaline Phosphatase 108 U/L (38-126); Anion Gap 10.1 mEq/L (5-15); Aspartate Amino Transferase 70 U/L (17-59); Bilirubin,Direct 0.2 mg/dl (0.0-0.4); Bilirubin,Indirect 0.3 mg/dL (0.0-0.9); Bilirubin,Total 0.5 mg/dl (0.2-1.3); Bilirubin,Unconjugated 0.3 mg/dL (0.0-1.1); Blood Urea Nitrogen 15 mg/dl (9-20); Calcium 9.4 mg/dl (8.4-10.2); Carbon Dioxide 31 mmol/L (22.0-30.0); Chloride 100 mmol/L (98-107); Cholesterol 113 mg/dl (140-200); Creatinine,Serum 1.00 mg/dl (0.66-1.25); Estimated Glomerular Filt Rate 75 ml/min (>60); GFR (African American) 91 ML/MIN (>60); Glucose 145 mg/dl (74-100); HDL Cholesterol 38 mg/dl (40-60); Magnesium 2.0 mg/dl (1.6-2.3); Potassium 4.1 mmoL/L (3.5-5.1); Sodium 137 mmol/L (136-145); Total Protein,Serum 7.5 g/dl (6.3-8.2); Triglycerides 373 mg/dl (30-150)
[2025-04-30 10:40] LABS: Free T4 (Free Thyroxine) 0.97 ng/dl (0.78-2.19)
[2025-04-30 10:55] LABS: Thyroid Stimulating Hormone 1.85 uIU/mL (0.465-4.68)
== END 2025-04-30 23:59 | disposition home or self-care (01) ==
LOC: LAB 08:48
PROVIDERS: PCP Nurse Practitioner Family; Visit Provider Nurse Practitioner Family
DX: E78.5 Hyperlipidemia, unspecified (principal); R74.8 Abnormal levels of other serum enzymes; I10 Essential (primary) hypertension
CPT/HCPCS: 36415; 80048; 80061; 80076; 83735; 84439; 84443; 85025

== ENCOUNTER 2025-06-16 06:59 | Outpatient (CLI) | payer OTHER, SELFPAY ==
--- OUTSIDE RECORDS SUMMARY | 2025-06-16 07:00 | XMS_ITS | Clinical Summary ---
Author Organization Healthcare Address [address] [place] [address] Care Team Providers Care Angle Shear Operator Name Role Phone Unavailable Primary Care Provider [...] 2010 [facility]-Zoster Vaccines (1 of 2) 2010 [id number] Vaccine (3 - season) 2025 03/25/2021, 03/03/2021 [facility]-Influenza Vaccine (#1) 2025 04/06/2012 [facility]-RSV Vaccine: 60+ Years o r (1 - 1-dose 75+ series) 2035 HPV Vaccines (No Doses Required) Completed [facility]-HIB Vaccines Aged Out No longer e [...] patient's age to complete this topic Insurance [employer]
--- OUTSIDE RECORDS SUMMARY | 2025-06-16 07:01 | XMS_ITS | Data Portability ---
Author Organization [facility] Address [address] [place] [address] Assessment No assessment recorded. Plan of Treatment Reminders Order Date Submit Date Provider Last Modified By Organization Details Last Modified Time Details Appointments None recorded. Lab rapid strep group A, throat 2023 024 [facility], [address] [place] [address], [id number], 4 16:49:20 rapid flu (A+B) 2023 024 [facility], [address] [place] [address], [address], 4 16:49:39 rapid SARS CoV + SARS CoV 2 Ag, QL IA, respiratory specimen 2023 024 [facility], [address] [place] [address], [address], 4 16:49:20 venipunctur e 2023 024 ez[facility], [address], Kevin F, [place], [address], 4 11:35:13 rapid strep group A, throat 2023 024 [facility], [address] [place] [address], [address], 4 15:19:07 ESR (erythrocyt e sedimentati on rate), blood 2023 024 ARAMIS Manjarrez, [address], Kevin F, [place], [address], 4 14:09:20 C reactive protein, QN, serum or plasma 2023 024 ARAMIS Gaylerp, [address], Kevin F, [place], [address], 4 14:09:20 rf (rheumatoid factor), serum 2023 024 ARAMIS Gaylerp, [address], Kevin F, [place], [address], 4 14:09:19 WONG (antinuclea r antibodies) screen, serum 2023 024 ARAMIS Manjarrez, [address], Kevin F, [place], [address], 4 14:09:19 CBC w/ auto diff 2023 024 ARAMIS Manjarrez, [address], Kevin F, [place], [address], 4 14:09:17 hepatic function panel, serum 2023 024 ARAMIS Gaylerp, [address], Kevin F, [place], [address], 4 14:09:18 lipid panel, serum 2023 024 ARAMIS Manjarrez, [address], Kevin F, [place], [address], 4 14:09:18 CMP, serum or plasma 2023 024 ARAMIS Gaylerp, [address], Kevin F, [place], [address], 4 14:09:17 TSH + free T4, serum 2023 024 BAYON[facility], [address], Kevin F, [place], [address], 4 14:09:16 Referral None recorded. Procedures None recorded. Surgeries None recorded. Imaging None recorded. Medication Orders promethazin e 12.5 mg tablet 2024 025 [facility], [address] [place] [address] E Kevin Herzog[place], [id number], 5 05:02:02 azithromyci n 250 mg tablet 2023 024 [facility], [address] [place] [address] E Kevin Herzog-Christina [place], [id number], 4 17:03:42 omeprazole 20 mg capsule,del ayed release 2023 024 [facility], [address] [place] [address] E Kevin Herzog-Christina [place], [id number], 4 13:16:11 amlodipine 5 mg tablet 2023 024 [facility], [address] [place] [address] E Kevin G-Christina Russ [place], [id number], 4 13:16:10 metoprolol succinate ER 25 mg tablet,exte nded release 24 hr 2023 024 [facility], [address] [place] [address] E Kevin G-Christina Russ [place], [id number], 4 13:16:13 fluticasone propionate 50 mcg/actuati on nasal spray,suspe nsion 2023 024 [facility], [address] [place] [address] E Christina Martin [place], [id number], 5 09:58:55 cefdinir 300 mg capsule 2023 024 [facility], [address] [place] [address] E Christina Martin [place], [id number], 4 14:27:00 rosuvastati n 40 mg tablet 2023 024 [facility], [address] [place] [address] E Christina Martin [place], [id number], 4 09:21:09 Patient TargetsNo targets recorded. Patient InstructionsNo instructions recorded. Reason for Referral None Reported. Results Created Date Observation Date Name Description Value Unit Range Abnormal Flag Note LastModifiedBy Organization Detail LastModifiedTime 07/03/19 24 07/03/2023 rapid flu (A+B) Flu positi ve Not Available [address], [address], 07/03/2023 10:42:44 07/03/19 24 07/03/2023 rapid flu (A+B) Type A Not Available [address], [address], 07/03/2023 10:42:44 07/03/19 24 07/03/2023 rapid SARS CoV + SARS CoV 2 Ag, QL IA, respi rator y speci men SARS CoV antigen Negati ve Not Available [address], [address], 07/03/2023 10:42:37 12/10/19 24 12/10/2023 rapid strep group A, throa t Strep negati ve Not Available [address], [address], 12/10/2023 15:10:35 12/10/19 24 12/10/2023 rapid strep group A, throa t Culture No Not Available [address], [address], 12/10/2023 15:10:35 02/07/20 24 02/08/2024 TSH+F REE T4 TSH 0.662 uIU/m L 0.450- 4.500 normal Not Available [facility] ([facility]) [address] [place], [address], 02/08/2024 14:09:16 02/07/2002/08/2024 TSH+F REE T4 T4,free(dire ct) 1.18 NG/dL 0.82-1 .77 normal Not Available [facility] ([facility]) [address] [place], [address], 02/08/2024 14:09:16 02/07/20 24 02/08/2024 CBC WITH DIFFE RENTI AL/PL ATELE T WBC 6.4 x10e3 /uL 3.4-10 .8 normal Not Available [facility] ([facility]) [address] [place], [address], 02/08/2024 14:09:17 02/07/20 24 02/08/2024 CBC WITH DIFFE RENTI AL/PL ATELE T RBC 5.10 x10e6 /uL 4.14-5 .80 normal Not Available [facility] ([facility]) [address] [place], [address], 02/08/2024 14:09:17 02/07/20 24 02/08/2024 CBC WITH DIFFE RENTI AL/PL ATELE T hemoglobin 15.5 g/dL 13.0-1 7.7 normal Not Available [facility] ([facility]) [address] [place], [address], 02/08/2024 14:09:17 02/07/20 24 02/08/2024 CBC WITH DIFFE RENTI AL/PL ATELE T hematocrit 47.8 % 37.5-5 1.0 normal Not Available [facility] ([facility]) [address] [facility], [place], [address], 02/08/2024 14:09:17 02/07/20 24 02/08/2024 CBC WITH DIFFE RENTI AL/PL ATELE T MCV 94 fL 79-97 normal Not Available [facility] ([facility]) [address] [facility], [place], [address], 02/08/2024 14:09:17 02/07/2002/08/2024 CBC WITH DIFFE RENTI AL/PL ATELE T MCH 30.4 pg 26.6-3 3.0 normal Not Available [facility] ([facility]) [address] [facility], [place], [address], 02/08/2024 14:09:17 02/07/20 24 02/08/2024 CBC WITH DIFFE RENTI AL/PL ATELE T MCHC 32.4 g/dL 31.5-3 5.7 normal Not Available [facility] ([facility]) [address] [place], [address], 02/08/2024 14:09:17 02/07/20 24 02/08/2024 CBC WITH DIFFE RENTI AL/PL ATELE T RDW 12.8 % 11.6-1 5.4 Not Available [facility] ([facility]) [address] [place], [address], 02/08/2024 14:09:17 02/07/2002/08/2024 CBC WITH DIFFE RENTI AL/PL ATELE T platelets 151 x10e3 /uL 150-45 0 normal Not Available [facility] ([facility]) [address] [place], [address], 02/08/2024 14:09:17 02/07/20 24 02/08/2024 CBC WITH DIFFE RENTI AL/PL ATELE T neutrophils 63 % not estab. normal Not Available [facility] ([facility]) [address] [facility], [place], [address], 02/08/2024 14:09:17 02/07/20 24 02/08/2024 CBC WITH DIFFE RENTI AL/PL ATELE T lymphs 24 % not estab. normal Not Available [facility] ([facility]) [address] [facility], [place], [address], 02/08/2024 14:09:17 02/07/20 24 02/08/2024 CBC WITH DIFFE RENTI AL/PL ATELE T monocytes 8 % not estab. normal Not Available [facility] ([facility]) [address] [facility], [place], [address], 02/08/2024 14:09:17 02/07/20 24 02/08/2024 CBC WITH DIFFE RENTI AL/PL ATELE T eos 3 % not estab. normal Not Available [facility] ([facility]) [address] [facility], [place], [address], 02/08/2024 14:09:17 02/07/20 24 02/08/2024 CBC WITH DIFFE RENTI AL/PL ATELE T basos 1 % not estab. normal Not Available [facility] ([facility]) [address] [facility], [place], [address], 02/08/2024 14:09:17 02/07/20 24 02/08/2024 CBC WITH DIFFE RENTI AL/PL ATELE T immature cells DIRECTOR PRODUCT Not Available [facility] ([facility]) [address] [facility], [place], [address], 02/08/2024 14:09:17 02/07/20 24 02/08/2024 CBC WITH DIFFE RENTI AL/PL ATELE T neutrophils (absolute) 4.2 x10e3 /uL 1.4-7. 0 normal Not Available [facility] ([facility]) [address] [facility], [place], [address], 02/08/2024 14:09:17 02/07/20 24 02/08/2024 CBC WITH DIFFE RENTI AL/PL ATELE T lymphs (absolute) 1.5 x10e3 /uL 0.7-3. 1 normal Not Available [facility] ([facility]) [address] [facility], [place], [address], 02/08/2024 14:09:17 02/07/20 24 02/08/2024 CBC WITH DIFFE RENTI AL/PL ATELE T monocytes(ab solute) 0.5 x10e3 /uL 0.1-0. 9 normal Not Available [facility] ([facility]) [address] [facility], [place], [address], 02/08/2024 14:09:17 02/07/20 24 02/08/2024 CBC WITH DIFFE RENTI AL/PL ATELE T eos (absolute) 0.2 x10e3 /uL 0.0-0. 4 normal Not Available [facility] ([facility]) [address] [facility], [place], [address], 02/08/2024 14:09:17 02/07/20 24 02/08/2024 CBC WITH DIFFE RENTI AL/PL ATELE T baso (absolute) 0.0 x10e3 /uL 0.0-0. 2 normal Not Available [facility] ([facility]) [address] [facility], [place], [address], 02/08/2024 14:09:17 02/07/20 24 02/08/2024 CBC WITH DIFFE RENTI AL/PL ATELE T immature granulocytes 1 % not estab. Not Available [facility] ([facility]) [address] [facility], [place], [address], 02/08/2024 14:09:17 02/07/20 24 02/08/2024 CBC WITH DIFFE RENTI AL/PL ATELE T immature grans (abs) 0.0 x10e3 /uL 0.0-0. 1 Not Available [facility] ([facility]) [address] [facility], [place], [address], 02/08/2024 14:09:17 02/07/20 24 02/08/2024 CBC WITH DIFFE RENTI AL/PL ATELE T NRBC DIRECTOR PRODUCT Not Available [facility] ([facility]) [address] [facility], [place], [address], 02/08/2024 14:09:17 02/07/20 24 02/08/2024 CBC WITH DIFFE RENTI AL/PL ATELE T hematology comments: DIRECTOR PRODUCT Not Available [facility] ([facility]) [address] [facility], [place], [address], 02/08/2024 14:09:17 02/07/20 24 02/08/2024 COMP. METAB OLIC PANEL (14) glucose 124 mg/dL 70-99 above high normal Not Available [facility] ([facility]) [address] [facility], [place], [address], 02/08/2024 14:09:17 02/07/20 24 02/08/2024 COMP. METAB OLIC PANEL (14) BUN 11 mg/dL 8-27 normal Not Available [facility] ([facility]) [address] [facility], [place], [address], 02/08/2024 14:09:17 02/07/20 24 02/08/2024 COMP. METAB OLIC PANEL (14) creatinine 0.96 mg/dL 0.76-1 .27 normal Not Available [facility] ([facility]) [address] [facility], [place], [address], 02/08/2024 14:09:17 02/07/20 24 02/08/2024 COMP. METAB OLIC PANEL (14) eGFR 89 mL/mi n/1.7 3 >59 normal Not Available [facility] ([facility]) [address] [place], [address], 02/08/2024 14:09:17 02/07/20 24 02/08/2024 COMP. METAB OLIC PANEL (14) BUN/creatini ne ratio 11 10-24 normal Not Available [facility] ([facility]) [address] [place], [address], 02/08/2024 14:09:17 02/07/20 24 02/08/2024 COMP. METAB OLIC PANEL (14) sodium 139 mmol/ L 134-14 4 normal Not Available [facility] ([facility]) [address] [place], [address], 02/08/2024 14:09:17 02/07/20 24 02/08/2024 COMP. METAB OLIC PANEL (14) potassium 4.4 mmol/ L 3.5-5. 2 normal Not Available [facility] ([facility]) [address] [place], [address], 02/08/2024 14:09:17 02/07/20 24 02/08/2024 COMP. METAB OLIC PANEL (14) chloride 102 mmol/ L 96-106 normal Not Available [facility] ([facility]) [address] [place], [address], 02/08/2024 14:09:17 02/07/20 24 02/08/2024 COMP. METAB OLIC PANEL (14) carbon dioxide, total 22 mmol/ L 20-29 normal Not Available [facility] ([facility]) [address] [place], [address], 02/08/2024 14:09:17 02/07/20 24 02/08/2024 COMP. METAB OLIC PANEL (14) calcium 9.6 mg/dL 8.6-10 .2 normal Not Available [facility] ([facility]) [address] [place], [address], 02/08/2024 14:09:17 02/07/20 24 02/08/2024 COMP. METAB OLIC PANEL (14) protein, total 7.0 g/dL 6.0-8. 5 normal Not Available [facility] ([facility]) [address] [place], [address], 02/08/2024 14:09:17 02/07/20 24 02/08/2024 COMP. METAB OLIC PANEL (14) albumin 4.5 g/dL 3.9-4. 9 normal Not Available [facility] ([facility]) [address] [place], [address], 02/08/2024 14:09:17 02/07/20 24 02/08/2024 COMP. METAB OLIC PANEL (14) globulin, total 2.5 g/dL 1.5-4. 5 Not Available [facility] ([facility]) [address] [place], [address], 02/08/2024 14:09:17 02/07/20 24 02/08/2024 COMP. METAB OLIC PANEL (14) bilirubin, total 0.4 mg/dL 0.0-1. 2 normal Not Available [facility] ([facility]) [address] [place], [address], 02/08/2024 14:09:17 02/07/20 24 02/08/2024 COMP. METAB OLIC PANEL (14) alkaline phosphatase 96 IU/L 44-121 normal Not Available [facility] ([facility]) [address] [place], [address], 02/08/2024 14:09:17 02/07/20 24 02/08/2024 COMP. METAB OLIC PANEL (14) AST (SGOT) 44 IU/L 0-40 above high normal Not Available [facility] ([facility]) [address] [place], [address], 02/08/2024 14:09:17 02/07/20 24 02/08/2024 COMP. METAB OLIC PANEL (14) ALT (SGPT) 60 IU/L 0-44 above high normal Not Available [facility] ([facility]) [address] [facility], [place], [address], 02/08/2024 14:09:17 02/07/20 24 02/08/2024 HEPAT IC FUNCT ION PANEL (7) bilirubin, direct 0.19 mg/dL 0.00-0 .40 normal Not Available [facility] ([facility]) [address] [place], [address], 02/08/2024 14:09:18 02/07/20 24 02/08/2024 LIPID PANEL cholesterol, total 123 mg/dL 100-19 9 normal Not Available [facility] ([facility]) [address] [place], [address], 02/08/2024 14:09:18 02/07/20 24 02/08/2024 LIPID PANEL triglyceride s 120 mg/dL 0-149 normal Not Available [facility] ([facility]) [address] [place], [address], 02/08/2024 14:09:18 02/07/20 24 02/08/2024 LIPID PANEL HDL cholesterol 51 mg/dL >39 normal Not Available [facility] ([facility]) [address] [place], [address], 02/08/2024 14:09:18 02/07/20 24 02/08/2024 LIPID PANEL VLDL cholesterol natacha 21 mg/dL 5-40 Not Available [facility] ([facility]) [address] [place], [address], 02/08/2024 14:09:18 02/07/20 24 02/08/2024 LIPID PANEL LDL chol calc (rust) 51 mg/dL 0-99 Not Available [facility] ([facility]) [address] [facility], [place], [address], 02/08/2024 14:09:18 02/07/20 24 02/08/2024 LIPID PANEL LDL calc comment: DIRECTOR PRODUCT Not Available [facility] ([facility]) [address] [facility], [place], [address], 02/08/2024 14:09:18 02/07/20 24 02/08/2024 RHEUM ATOID FACTO R (RF) rheumatoid factor (rf) <10.0 IU/mL <14.0 Not Available [facility] ([facility]) [address] [facility], [place], [address], 02/08/2024 14:09:19 02/07/20 24 02/08/2024 ANTIN UCLEA R AB MULTI PLEX RFX 9 WONG direct Negati ve negati ve Not Available [facility] ([facility]) [address] [facility], [place], [address], 02/08/2024 14:09:19 02/07/20 24 02/08/2024 SEDIM ENTAT ION RATE- WESTE RGREN sedimentatio n rate-westerg rigo 6 mm/HR 0-30 normal Not Available [facility] ([facility]) [address] [facility], [place], [address], 02/08/2024 14:09:20 02/07/20 24 02/08/2024 C-SUREKHA CTIVE PROTE IN, QUANT C-reactive protein, quant <1 mg/L 0-10 Not Available [facility] ([facility]) [address] [facility], [place], [address], 02/08/2024 14:09:20 05/01/20 24 05/01/2024 rapid flu (A+B) Flu negati ve Not Available [address], [address], 05/01/2024 16:24:02 05/01/20 24 05/01/2024 rapid flu (A+B) Type Both A & B Not Available [address], [address], 05/01/2024 16:24:02 05/01/20 24 05/01/2024 rapid SARS CoV + SARS CoV 2 Ag, QL IA, respi rator y speci men SARS CoV antigen Negati ve Not Available [address], [address], 05/01/2024 16:24:27 05/01/20 24 05/01/2024 rapid strep group A, throa t Strep negati ve Not Available [address], [address], 05/01/2024 16:19:16 05/01/2005/01/2024 rapid strep group A, throa t Culture No Not Available [address], [address], 05/01/2024 16:19:16 11/16/19 25 11/05/2024 US, doppl er echoc ardio gram No observ ation record ed. [email or web address] [facility] [address], [place], [address], 11/17/2024 08:34:40 Result Notes None recorded. Problems Name Problem SNOMED Code Status Onset Date Resolution Date Notes Provider Name and Address Organization Details Recorded Time Acid reflux 634698248 Active 2021 Jaxon Zayas APRN [address], [place], [address], [place] - [facility] 3 14:10:08 Essential hypertension 59959511 Active 2022 Jaxon Zayas APRN [address], [place], [address], [place] - [facility] 3 14:10:11 Diastolic dysfunction 6276332 Active 2023 Jaxon Zayas APRN [address], [place], [address], [place] - [facility] 4 15:06:47 Coronary arterioscleros is 04991031 Active 2023 Jaxon Zayas APRN [address], [place], [address], [place] - [facility] 4 15:08:08 Hyperlipidemia 51963727 Active 2023 Jaxon Zayas PRIMARY CLINICIAN [address], [place], [address], [place] - [facility] 4 15:08:18 Problem Notes None recorded. Procedures Surgical History Date Name Laterality Status Provider Name and Address Organization Details Recorded Time 01/30/20 23 Medication Reconcilliation completed Ina Quezada [place] - [facility] 01/29/2023 13:34:45 Appendectomy completed Rahcel Whitt [place] - [facility] 04/14/2022 11:39:25 Imaging Results None recorded. Procedure Notes None recorded. Medical Equipment None Reported. Allergies No known drug allergies Medications Name Sig Start Date Stop Date Status Note LastModified by Organization Details LastModified Time aspirin low 81mg chw CHEW AND SWALLOW 1 TABLET BY MOUTH ONCE DAILY 12/09 completed Not Available Not Available Not Available atorvasta tin 40 mg tablet TAKE ONE TABLET BY MOUTH EVERY DAY AT BEDTIME 07/03 completed Not Available Not Available Not Available azithromy hemant 250 mg tablet TAKE 2 TABLETS BY MOUTH ON DAY 1, THEN TAKE 1 TABLET DAILY ON DAYS 2-5 05/01 completed Not Available Not Available Not Available promethaz ine 12.5 mg tablet Take 1 tablet every 6 hours by oral route as needed for 3 days. 03/26 completed Not Available Not Available Not Available ondansetr on HCl 4 mg tablet TAKE 1 TABLET BY MOUTH EVERY 8 HOURS NEEDED FOR 3 DAYS 07/30 completed Not Available Not Available Not Available Medrol (Malik) 4 mg tablets in a dose pack take as directed for 7 days 07/27 completed Medrol (Malik) 4 mg oral tablets, dose pack;com ment: finished medicati on;Presc ribe Status: Prescrib ed on: 07/21/19 15 12:24PM; Disconti nued Status: Disconti nued on: 07/27/19 15 10:46AM; User: [email or web address];Est. Completi on: 07/28/19 15;Pharm acyVerif ied: 07/21/19 15 12:24PM Not Available Not Available Not Available prednison e 20 mg tablet TAKE 1 TABLET BY MOUTH TWICE DAILY FOR 5 DAYS 01/15 completed Not Available Not Available Not Available amlodipin e 5 mg tablet TAKE ONE TABLET BY MOUTH EVERY DAY active Not Available Not Available No t Available sulfameth oxazole 800 mg-trimet hoprim 160 mg tablet 04/14 completed Not Available Not Available Not Available triamcino lone acetonide 0.1 % topical cream APPLY TOPICALL Y TO FORESKIN TWICE DAILY 04/14 completed Not Available Not Available Not Available ketorolac 30 mg/mL (1 mL) injection solution Inject 15 mg as needed by intramus cular route. 10/30 completed Not Available Not Available Not Available oseltamiv ir 75 mg capsule TAKE 1 CAPSULE BY MOUTH TWICE DAILY FOR 5 DAYS FOR FLU A 07/30 completed Not Available Not Available Not Available omeprazol e 20 mg capsule,d elayed release TAKE ONE CAPSULE BY MOUTH EVERY DAY FOR acid reflux active Not Available Not Available No t Available aspirin 81 mg chewable tablet chew AND swallow 1 TABLET BY MOUTH EVERY DAY active Not Available Not Available No t Available metoprolo l succinate ER 25 mg tablet,ex tended release 24 hr TAKE ONE TABLET BY MOUTH EVERY NIGHT active Not Available Not Available No t Available dexametha sone sodium phosphate 4 mg/mL injection solution Inject 1 mL every day by intramus cular route. 10/30 completed Not Available Not Available Not Available ondansetr on 4 mg disintegr ating tablet Place 1 tablet every day by translin gual route. 07/30 completed Not Available Not Available Not Available cefdinir 300 mg capsule TAKE ONE CAPSULE BY MOUTH EVERY TWELVE HOURS FOR 10 DAYS -- FINISH ALL MEDICINE -- 12/09 completed Not Available Not Available Not Available fluticaso ne propionat e 50 mcg/actua tion nasal spray,swati pension instill 1 SPRAY IN EACH NOSTRIL EVERY DAY 03/16 completed Not Available Not Available Not Available Augmentin 500 mg-125 mg tablet take 1 tablet by oral route every 12 hours for 10 days 09/01 completed Augmenti n 500-125 mg oral tablet;P rescribe Status: Prescrib ed on: 07/27/19 15 11:05AM; Disconti nued Status: Disconti nued on: 09/02/19 16 4:04PM;U ser: [email or web address];Est. Completi on: 08/06/19 15;Pharm acyVerif ied: 07/27/19 15 11:05AM Not Available Not Available Not Available amoxicill in 875 mg-potass ium clavulana te 125 mg tablet TAKE 1 TABLET BY MOUTH EVERY 12 HOURS FOR 10 DAYS 07/04 completed Not Available Not Available Not Available rosuvasta tin 40 mg tablet TAKE ONE TABLET BY MOUTH EVERY DAY active Not Available Not Available No t Available magnesium 07/30 completed Not Available Not Available Not Available Prilosec 1 tablet qd 04/17 completed Not Available Not Available Not Available Mucinex 07/30 completed Not Available Not Available Not Available Vitals Date Recorded Body height Respiratory rate Body mass index (BMI) Body weight Body temperature Heart rate Oxygen saturation Systolic And Diastolic Provider Name and Address Organization Details Last Updated DateTime 4 183.52 cm 18 /min 30.3 kg/m2 139690. 28 g 98.1 [degF] 90 /min 97 % 126/78 mm[Hg] Rachel Stears [place] - [facility] 4 14:34:07 Date Recorded Body height Body mass index (BMI) Body weight Body temperature Heart rate Oxygen saturation Respiratory rate Pain severity - 0-10 verbal numeric rating [Score] - Reported Systolic And Diastolic Provider Name and Address Organization Details Last Updated DateTime 4 183.52 cm 30.2 kg/m2 615023. 69 g 97.5 [degF] 86 /min 97 % 18 /min 0 118/72 mm[Hg] Ina Quezada [place] - [facility] 4 14:33:25 Date Recorded Body height Provider Name an d Address Organization Details Last Updated DateTime 02/07/2024 183.52 cm Ina Quezada [facility] 0 02/07/2024 09:47:05 Date Recorded Body height Body mass index (BMI) Body weight Body temperature Heart rate Oxygen saturation Respiratory rate Pain severity - 0-10 verbal numeric rating [Score] - Reported Systolic And Diastolic Provider Name and Address Organization Details Last Updated DateTime 5 183.52 cm 30.4 kg/m2 071108. 88 g 98.1 [degF] 77 /min 95 % 18 /min 0 128/82 mm[Hg] Ina Quezada [place] - [facility] 5 10:02:01 Date Recorded Body height Body mass index (BMI) Body weight Body temperature Heart rate Respiratory rate Oxygen saturation Systolic And Diastolic Provider Name and Address Organization Details Last Updated DateTime 4 183.52 cm 30.6 kg/m2 376949. 47 g 98.8 [degF] 84 /min 18 /min 94 % 140/82 mm[Hg] Rachel Mejiaseng [place] - [facility] 4 16:22:09 Social History Question Answer Notes LastModified by Organizat ion Details LastModified Time Tobacco Smoking Status Former Smoker Rachel Jose Eduardo [facility], [place] - [facility] 04/14/2022 11:37:55 Do You Have An Advance Directive? No Information not available 04/14/2022 Are You Blind Or Do You Have Difficulty Seeing? No Wears Glasses Information not available 04/14/2022 What Is Your Level Of Caffeine Consumption? Occasional Information not available 04/14/2022 In The 14 Days Before Symptom Onset, Have You Had Close Contact With A Laboratory-confir med COVID-19 While That Case Was Ill? No Information not available 01/15/2023 In The 14 Days Before Symptom Onset, Have You Had Close Contact With A Person Who Is Under Investigation For COVID-19 While That Person Was Ill? No Information not available 01/15/2023 Have You Been To An Area Known To Be High Risk For COVID-19? No Information not available 01/15/2023 Are You Deaf Or Do You Have Serious Difficulty Hearing? No Information not available 04/14/2022 What Type Of Diet Are You Following? REGULAR Information not available 04/14/2022 Have You Processed Blood Or Body Fluids From An Ebola Virus Disease Patient Without Appropriate PPE? No Information not available 01/15/2023 Do You Reside In Or Have You Traveled To An Area Where Ebola Virus Transmission Is Active? No Information not available 01/15/2023 What Is The Highest Grade Or Level Of School You Have Completed Or The Highest Degree You Have Received? [id number] Information not available 04/14/2022 Have There Been Any Changes To Your Family Or Social Situation? No Information no t available 04/14/2022 What Is The Fluoride Status Of Your Home? Unknown Information not available 04/14/2022 Have You Recently Or Are You Planning To Travel To An Area With Zika Virus? No Information not available 01/15/2023 Do You Have A Medical Power Of Stitching Machine Setter? No Information not available 04/14/2022 What Was The Date Of Your Most Recent Tobacco Screening? 12/10/2023 Information not available 12/10/2023 What Is Your Current Pack Years? 30ormorepacky ears Information not available 07/06/2022 What Is Your Relationship Status? Information not available 04/14/2022 Do You Have Smoke And Carbon Monoxide Detectors In Your Home? Yes Information not available 04/14/2022 Are You Passively Exposed To Smoke? No Information no t available 04/14/2022 Has Tobacco Cessation Counseling Been Provided? No Information not available 10/30/2022 Do You Have Difficulty Walking Or Climbing Stairs? No Information not available 04/14/2022 Sex: Male Functional Status Question Answer Note LastModified by Organizat ion Details LastModified Time How many times per week do you consume alcohol? 3-4 times per week Information not available 04/14/2022 Do you use any illicit or recreational drugs? No Information not available 04/14/2022 Do you or have you ever used any other forms of tobacco or nicotine? No Information not available 07/06/2022 What is your level of alcohol consumption? Moderate Information not available 04/14/2022 Are you currently employed? Yes Information not available 04/14/2022 Do you have transportation difficulties? No Information not available 04/14/2022 Are you able to walk independently without assistance or assistive devices? YESWOREST Information not available 04/14/2022 Do you have difficulty doing errands alone? No Information not available 04/14/2022 Are you able to care for yourself independently? Yes Information not available 04/14/2022 What is your occupation? [employer] Information not available 04/14/2022 Do you have difficulty dressing, bathing, grooming, or toileting? No Information not available 04/14/2022 What is your exercise level? None Information not available 04/14/2022 Mental Status Question Answer Note LastModified by Organizat ion Details LastModified Time Do you feel stressed (tense, restless, nervous, or anxious, or unable to sleep at night)? [id number] Information not available 04/14/2022 Do you have difficulty concentrating, remembering or making decisions? No Information no t available 04/14/2022 Family History Relationship Description Onset Age of this Age Resolved Age Notes LastModified by Organization Details LastModified Time Father No current problems or disability bstears Not available 04/14 11:37:00 Mother No current problems or disability bstears Not available 04/14 11:37:00 Medical History No medical history recorded. Immunizations Vaccine Type Date Status Note Provider Nam e and Address Organization Details Recorded Time influenza, unspecified formulation 2 completed Not Available [facility] [place] 07/30/2023 14:19:25 influenza, split (incl. purified surface antigen) 2 completed MEGAN Trimble - [facility] 04/17/2022 09:42:28 COVID-19, mRNA, LNP-S, PF, 30 mcg/0.3 mL dose 1 completed MEGAN Trimble - [facility] 04/17/2022 09:42:28 COVID-19, mRNA, LNP-S, PF, 30 mcg/0.3 mL dose completed Ina Quezada [facility], [place] - [facility] 04/17/2022 09:42:28 Past Encounters Encounter ID Performer Location Encounter Start Date Encounter Closed Date Diagnosis/Indication Diagnosis SNOMED-CT Code Diagnosis ICD10 Code Diagnosis IMO Codes Diagnosis Note [id number] Jaxon Zayas [address] [address] 04/14/2022 11:11:26 04/14/2022 12:08:32 Adult health examination 288690988 Z00.00 Screening for malignant neoplasm of colon 024324965 Z12.11 [id number] Jaxon Zayas [address] [address] 04/17/2022 09:27:29 04/17/2022 09:40:58 Adult health examination 808117290 Z00.00 [id number] Jaxon Zayas [address] [address] 07/04/2022 14:30:52 07/04/2022 15:33:13 Edema of lower extremity 374768099 R60.0 Abnormal p eripheral pulse 54817724 R09.89 sent to [facility] for stat venous doppler and they will call report- negative for dvt Pain of ri ght ankle joint 0597316214 7524650 M25.571 if no improvemen t will need labs and more work up [id number] Jaxon Zayas [address] [address] 07/06/2022 10:26:28 07/06/2022 11:59:34 Swelling of first metatarsal joint of hallux of left foot 9080657565 192353 M25.475 checking for gout Impaired f asting glycemia 981451370 R73.01 [id number] Jaxon Zayas [address] [address] 10/30/2022 12:40:05 10/30/2022 13:44:43 Body mass index 30+ - obesity 552457555 Z68.30 Obesity 957426903 E66.9 Acute bronchitis 1661576 2 J20.9 if symptoms worsen or no improvemen t return [id number] Jaxon Zayas [address] [address] 01/15/2023 13:18:39 01/15/2023 13:59:04 Chest pain 40157077 R07.[address] wild sent to [facility] for direct admit for cardiac work up [id number] Janethslick Zayas [address] [address] 01/29/2023 13:29:14 01/29/2023 14:12:23 Essential hypertension 94302945 I10 continue meds and follow up with cardiology [id number] [facility] [address] [address] 07/03/2023 10:06:30 07/03/2023 12:08:14 Nausea 466973268 R11.0 Influenza caused by Influenza A virus 619014014 J09.X2 no sign of a bacterial infection. likely viral. viruses can take 7-14 days to run their course. nasal saline and bulb syringe to remove nasal drainage to help with congestion . monitor temp. Tylenol or Motrin as needed for pain or fever. encourage fluids, water, Gatorade, power aide, Pedialyte if /tod dler/child warm salt water gargles warm fluids sore throat lozenges sleep elevated humidifier /vaporizer follow up immediatel y for new or worsening symptoms or no noticeable improvemen t over the next 48-72 hours [id number] Janethslick Zayas [address] [address] 07/30/2023 14:15:00 07/30/2023 15:09:49 Acid reflux 282248716 K21.9 Essential hypertension 73101693 I10 continue meds and follow up with cardiology Acute maxi llary sinusitis 33597436 J01.00 Hyperlipidemia 22852155 E78.5 [id number] Janethslick Zayas PRIMARY CLINICIAN [address] [address] 12/10/2023 14:21:55 12/10/2023 15:23:16 Essential hypertension 25697962 I10 continue meds and follow up with cardiology Diastolic dysfunction 35 62934 I51.9 Hyperlipidemia 87290778 E78.5 Sore throat 140272835 J0 2.9 Pain of mu ltiple joints 35126659 M25.50 Streptococ natacha sore throat 99910133 J02.0 contact precaution sif no improvemen t return [id number] [facility] [address] [address] 02/07/2024 09:21:14 02/07/2024 09:57:59 Essential hypertension 56225793 I10 continue meds and follow up with cardiology [id number] [facility] [address] [address] 05/01/2024 15:46:12 05/01/2024 16:58:14 Upper respiratory infection 23055863 J06.9 no sign of a bacterial infection. likely viral. viruses can take 7-14 days to run their course. nasal saline and bulb syringe to remove nasal drainage to help with congestion . monitor temp. Tylenol or Motrin as needed for pain or fever. encourage fluids, water, Gatorade, power aide, Pedialyte if /tod dler/child warm salt water gargles warm fluids sore throat lozenges sleep elevated humidifier /vaporizer follow up immediatel y for new or worsening symptoms or no noticeable improvemen t over the next 48-72 hours [id number] [facility] Lund[facility] [address] [address] 03/16/2025 09:41:52 03/16/2025 10:44:08 Body mass index 30+ - obesity 053779482 Z68.30 296668 30.4 Nausea and vomiting 1693 2000 R11.2 360700 edel dominguez se fluid intakemoni tor for temp- go to ed if temp developsif symptoms worsen or no improvemen t return or be seen in er Health Concerns Section Related Observation LastModified by Organization Detai ls LastModified Time None Recorded Concern Status LastModified by Organization Details LastModified Time None Recorded Advance Directives Directive N: Payers Insurance Date Sequence Insurance Name Policy Number Policy Amanda Covered Member ID Amanda Member ID Guarantor Name 03/16/2025 1 [facility] ([place] [id number] Anderson Anthony [id number] Anderson Anthony 05/07/2025 1 [facility] [id number] Winnie Dodson Raj [id number] Anderson Anthony Notes Date Note Type Note Provider Name and Address Organization Details Recorded Time 07/30/2023 text/html 63 year old male who presents to the office today with concerns ofcongestion, headaches, yellow/green nasal drainage, thinks sinus infectionneeds refill on all medication [facility] in for htn and gerdDeclines being swabbed for flu and covid Jaxon Zayas APRN [address], [place], [address], [place] - [facility] 07/30/2023 15:28:12 12/10/2023 text/html ROS as noted in the HPI 63 yr old male presents for sinus drainage causing a sore throat. He also request his labs drawn for cardiology.pt states he also is having multiple joint pains, all the time and worse in mornings Jaxon Zayas APRN [address], [place], [address], [place] - [facility] 12/10/2023 15:22:31 02/07/2024 text/html 63 yr old male presents for lab worik. Ina Quezada [facility], [place] - [facility] 02/07/2024 09:49:39 05/01/2024 text/html ROS as noted in the HPI 63 year old male who presents to the office today with concerns ofcough, congestion, sore throat, feels like head is swimming for 2 days Jaxon Zayas APRN [address], [place], [address], [place] - [facility] 05/01/2024 16:50:14 03/16/2025 text/html ROS as noted in the HPI 64 yr old male patient states he is retching and nauseated states he is not producing any vomit. Symptoms started Sunday. after eatting spam, took zofran that didnt help Jaxon Zayas, PRIMARY CLINICIAN [address], [place], [address], [place] - [facility] 03/16/2025 11:03:33
--- NOTE | 2025-06-16 07:30 | US_ITS ---
FINAL REPORT TECHNIQUE: Sonographic images of the right upper quadrant were obtained. CLINICAL HISTORY: elevated LFTs COMPARISON: None FINDINGS: PANCREAS: Unremarkable. LIVER: Fatty infiltration of the liver is present. The liver is enlarged. No focal hepatic lesion. No intrahepatic biliary ductal dilatation. The portal vein appears patent. GALLBLADDER: No gallstones. No gallbladder wall thickening or pericholecystic fluid. COMMON DUCT: 5 mm. Normal for age. RIGHT KIDNEY: The right kidney measures 12.7 cm. There is no hydronephrosis, mass, or stone. FREE FLUID: None. IMPRESSION: Fatty infiltration and an enlarged liver are present. Reviewed, Interpreted and Dictated by Mindy Villegas MD Transcribed by Linda Burch Authenticated and . [facility]
[2025-06-16 07:42] LABS: Hematocrit 43.2 % (42.0-52.0); Hemoglobin 14.4 g/dL (14.1-18.0); Immature Granulocytes % 0.3 %; Mean Corpuscular HGB Conc 33.3 g/dL (31.8-35.4); Mean Corpuscular Hemoglobin 29.6 pg (27.0-31.2); Mean Corpuscular Volume 88.9 fl (80-94); Nucleated Red Blood Cells % 0 %; Platelet Count 162 K/mm3 (142-424); Red Blood Count 4.86 M/mm3 (4.60-6.20); Red Cell Distribution Width-SD 39.1 fL; White Blood Count 7.4 K/mm3 (4.8-10.8)
[2025-06-16 07:45] LABS: INR 1.06 (0.9-1.1); Prothrombin Time 11.7 seconds (10.1-12.5)
[2025-06-16 07:57] LABS: Albumin Level 4.5 g/dl (3.5-5.0); Chloride 107 mmol/L (98-107); Potassium 4.1 mmoL/L (3.5-5.1); Sodium 139 mmol/L (136-145)
[2025-06-16 07:59] LABS: Alanine Aminotransferase 80 U/L (12-78); Anion Gap 6.1 mEq/L (5-15); Aspartate Amino Transferase 59 U/L (17-59); Blood Urea Nitrogen 15 mg/dl (9-20); Carbon Dioxide 30 mmol/L (22.0-30.0); Creatinine,Serum 1.00 mg/dl (0.66-1.25); Estimated Glomerular Filt Rate 75 ml/min (>60); GFR (African American) 91 ML/MIN (>60)
[2025-06-16 08:00] LABS: Albumin/Globulin Ratio 1.7 (1.1-1.8); Alkaline Phosphatase 93 U/L (38-126); Bilirubin,Total 0.5 mg/dl (0.2-1.3); Calcium 8.9 mg/dl (8.4-10.2); Globulin 2.6 g/dL (1.3-3.2); Glucose 124 mg/dl (74-100); Iron 108 ug/dL (49-181); Total Protein,Serum 7.1 g/dl (6.3-8.2)
[2025-06-16 08:09] LABS: Total Iron Binding Capacity 265 ug/dL (261-462)
[2025-06-16 08:34] LABS: Ferritin 714 ng/ml (17.9-464)
[2025-06-19 00:17] LABS: ALT (SGPT) P5P 75 IU/L (0-55); AST (SGOT) P5P 57 IU/L (0-40); Alpha 2-Macroglobulins, Qn 212 mg/dL (110-276); Bilirubin, Total 0.3 mg/dL (0.0-1.2); Cholesterol, Total 105 mg/dL (100-199); GGT 258 IU/L (0-65); Glucose 127 mg/dL (70-99); Triglycerides 260 mg/dL (0-149)
== END 2025-06-16 23:59 | disposition home or self-care (01) ==
LOC: RAD 06:59
PROVIDERS: PCP Nurse Practitioner Family; Visit Provider Nurse Practitioner Family
DX: K76.0 Fatty (change of) liver, not elsewhere classified (principal); R16.0 Hepatomegaly, not elsewhere classified; R74.8 Abnormal levels of other serum enzymes; Z86.19 Personal history of other infectious and parasitic diseases
CPT/HCPCS: 36415; 76705; 80053; 80074; 80321; 82103; 82104; 82172; 82247; 82465; 82728; 82947; 82977; 83010; 83521; 83540; 83550; 84450; 84460; 84478; 85025; 85610